=== PATIENT | female | born 1985 | race Caucasian/White ===

== ENCOUNTER 2021-04-03 03:07 | Inpatient (IN) ==
[2021-04-03] MEDS ORDERED: Buffered Lidocaine 1% SYRIN 1 ml INTRADERM ONE (04:16)
[2021-04-03] MEDS ORDERED: Lactated Ringers 1000 ml BAG 1,000 ML IV ONE (04:16)
[2021-04-03] MEDS ORDERED: Lactated Ringers 1000 ml BAG 1,000 ML IV SCH (05:00)
[2021-04-03 05:04] LABS: Urine Benzodiazepine Screen None Detected (None Detect); Urine Cannabinoids Screen Presumptive Positive (None Detect); Urine Opiates Screen None Detected (None Detect)
[2021-04-03] MEDS ORDERED: Witch Hazel PAD JAR TOPICAL PRN (10:49)
[2021-04-03] MEDS ORDERED: Lidocaine 1% VIAL 10 MG/ML VIAL ONE (10:57)
[2021-04-03] MEDS: Dibucaine 1% OINT 28.35 GM TUBE PR PRN (12:13)
[2021-04-04 07:27] LABS: ABS Lymphocytes 1.9 10^3/ul (1.0-4.8); ABS Monocytes 0.8 10^3/ul (0-0.8); ABS Neutrophils 9.5 10^3/ul (1.5-7.7); Eosinophil % 0.1 %; Hematocrit 31 % (35-47); Hemoglobin 10.1 g/dL (12.0-16.0); Lymphocyte % 15.8 %; Mean Corpuscular HGB Conc 33 g/dL (31-36); Mean Corpuscular Hemoglobin 28 pg (27-31); Mean Corpuscular Volume 86 fL (80-97); Mean Platelet Volume 8.6 fL (7.4-10.4); Platelet Count 259 10^3/uL (150-450); Red Blood Count 3.63 10^6 /uL (3.70-4.87); Red Cell Distribution Width 15 % (10-15); White Blood Count 12.3 10^3/uL (3.5-10.8)
[2021-04-04] MEDS ORDERED: Measles, Mumps,Rubella VACC 0.5 ML/VIAL SUBCUT ONE (09:00)
[2021-04-04] MEDS: Dibucaine 1% OINT 28.35 GM TUBE PR PRN (16:53)
[2021-04-05 09:34] VITALS: BP 112/66
== END 2021-04-05 12:20 | disposition home or self-care (01) | DRG 560 ==
LOC: MCHOBOUT 03:07 → MCHOB 04:02
PROVIDERS: ADMIT Midwife; ATTEND Midwife